=== PATIENT | female | born 1960 | race Caucasian/White ===

== ENCOUNTER 2019-06-24 14:47 | Emergency (ER) | payer OTHER ==
[2019-06-24] MEDS ORDERED: Morphine 4 MG/ML VIAL ONE (15:04)
[2019-06-24 15:22] LABS: #Eosinphils 0.1 thou/uL (0.0-0.7); #Lymphocytes 1.8 thou/uL (1.20-3.40); #Monocytes 0.7 thou/uL (0.11-0.59); #Neutrophils 7.4 thou/uL (1.40-6.50); %Basophils 0.4 % (0.0-1.0); %Lymphocytes 18.1 % (21.0-51.0); %Monocytes 6.9 % (0.0-10.0); %Neutrophils 73.6 % (42.0-75.0); Hemoglobin 12.3 g/dL (12.0-16.0); Mean Corpuscular HGB CONC 32.4 g/dL (32.0-36.0); Mean Corpuscular Hemoglobin 28.3 pg (27.0-31.0); Mean Corpuscular Volume 87.4 fL (78.0-98.0); Mean Platelet Volume 6.5 fL (7.4-10.4); Platelet Count 229 thou/uL (130-400); RBC Distribution Width 14.8 % (11.5-14.5); Red Blood Cell (RBC) Count 4.33 mill/uL (4.20-5.40); White Blood Cell (WBC) Count 10.1 thou/uL (4.8-10.8)
[2019-06-24 15:35] LABS: ALT (SGPT) 12 U/L (8-55); AST (SGOT) 15 U/L (5-34); Albumin 4.1 g/dL (3.5-5.0); Alkaline Phosphatase 155 U/L (40-110); Anion Gap 16 mmol/L (10-20); BUN (Urea Nitrogen) 8 mg/dL (9.8-20.1); Bilirubin, Total 0.6 mg/dL (0.2-1.2); Calc. Creatinine Clearance 0 mL/min (70-130); Calcium 9.5 mg/dL (7.8-10.44); Carbon Dioxide 27 mmol/L (22-29); Chloride 101 mmol/L (98-107); Estimated GFR-MDRD 70; Globulin 2.4 g/dL (2.4-3.5); Glucose 122 mg/dL (70-105); Potassium 3.5 mmol/L (3.5-5.1); Protein, Total 6.5 g/dL (6.0-8.3); Sodium 140 mmol/L (136-145)
[2019-06-24] MEDS ORDERED: Acetaminophen/Codeine 30-300mg Tablet ONE (16:05)
--- NOTE | 2019-06-24 17:36 | RAD ---
RIGHT KNEE THREE VIEWS: Date: 06-24-2019 Comparison: 02-22-19 FINDINGS: It is evident that the patient has had some surgery in the interim as there are now screws seen in th e patella which were not present before. The knee arthroplasty was present previously. A joint effusion is present. Calcification in the region of the suprapatellar bursa was present previ ously, just not as dense. The piece of bone seen posterior to the distal femur in the popliteal fossa was present previously as well. I see no major fracture. There is a small sliver of bone along the l ateral femoral condyle that is not as apparent on the old study. I cannot tell if this might be a sma ll avulsion or note. I really cannot adequately evaluate the patella since it is mostly obscured by t he overlap from the arthroplasty, however, I do not perceive an acute fracture in it. It might be pru dent to have the patient referred to her orthopedic surgeon for further examination and evaluation. IMPRESSION: 1. Joint effusion. 2. No dramatic fracture but cannot exclude a small avulsion from the lateral femoral condyle. Orthope dic follow up would seem prudent. Code T POS: HOME
--- NOTE | 2019-06-24 17:38 | RAD ---
RIGHT RIBS WITH PA CHEST: Date: 06-24-2019 FINDINGS: Multiple views are provided. The heart is normal in size and the mediastinum shows no widening or patricia ft. The lungs are fully inflated and clear. There is no sign of pneumothorax or pleural effusion. On one of the oblique views there is a question of slight irregularity in the right 6th rib anteriorl y near the costochondral junction. If this correlates positively with the site of pain (my understand ing is that it does) than the possibility of a minimal nondisplaced fracture is raised. The other rib s appear intact. If the patient is slightly osteopenic, subtle fractures would probably only be seen on CT. IMPRESSION: Suspicious for a minimal fracture of the right anterior sixth rib. No other acute chest abnormalities were seen. POS: HOME
== END 2019-06-24 16:45 | disposition home or self-care (01) ==
LOC: BURERS 14:47
DX: S22.41XA Multiple fractures of ribs, right side, initial encounter for closed fracture (principal); S80.01XA Contusion of right knee, initial encounter; E11.9 Type 2 diabetes mellitus without complications; I10 Essential (primary) hypertension; I25.10 Atherosclerotic heart disease of native coronary artery without angina pectoris; E78.00 Pure hypercholesterolemia, unspecified; F32.9 Major depressive disorder, single episode, unspecified; F17.210 Nicotine dependence, cigarettes, uncomplicated; Z79.899 Other long term (current) drug therapy; Z79.84 Long term (current) use of oral hypoglycemic drugs; W01.198A Fall on same level from slipping, tripping and stumbling with subsequent striking against other object, initial encounter
CPT/HCPCS: 80053; 85025; 96374; J2270

== ENCOUNTER 2019-06-27 19:32 | Emergency (ER) | payer OTHER ==
[2019-06-27] MEDS ORDERED: Morphine 2 MG/ML SYRINGE ONE (20:09)
[2019-06-27] MEDS ORDERED: Ibuprofen 800 MG TAB ONE (20:09)
== END 2019-06-27 20:19 | disposition home or self-care (01) ==
LOC: BURERS 19:32
DX: S22.31XA Fracture of one rib, right side, initial encounter for closed fracture (principal); E11.9 Type 2 diabetes mellitus without complications; I10 Essential (primary) hypertension; I25.10 Atherosclerotic heart disease of native coronary artery without angina pectoris; F17.210 Nicotine dependence, cigarettes, uncomplicated; W18.30XA Fall on same level, unspecified, initial encounter; Z91.81 History of falling
CPT/HCPCS: 96372; 99283; J2270